=== PATIENT | male | born 1975 | race Caucasian/White ===

== ENCOUNTER → 2016-06-14 | Outpatient (CLI) | payer MEDICARE, OTHER ==
[~2016-06-14] VITALS: Ht 185.4 cm; Wt 163.3 kg
== END ==
LOC: OPSV 08:03
DX: H15.001 Unspecified scleritis, right eye (principal); K21.9 Gastro-esophageal reflux disease without esophagitis; M10.9 Gout, unspecified; I77.6 Arteritis, unspecified; H15.011 Anterior scleritis, right eye; S46.119A Strain of muscle, fascia and tendon of long head of biceps, unspecified arm, initial encounter; H26.9 Unspecified cataract; N18.3 Chronic kidney disease, stage 3 (moderate); R13.10 Dysphagia, unspecified; M31.30 Wegener's granulomatosis without renal involvement; R00.0 Tachycardia, unspecified; R80.9 Proteinuria, unspecified; M85.80 Other specified disorders of bone density and structure, unspecified site; R11.0 Nausea; B19.20 Unspecified viral hepatitis C without hepatic coma; Z79.899 Other long term (current) drug therapy; R53.83 Other fatigue; R60.9 Edema, unspecified; R79.89 Other specified abnormal findings of blood chemistry; I26.99 Other pulmonary embolism without acute cor pulmonale
CPT/HCPCS: 96365; 96366; 96375; J2930; J7030; J9310; Q0163

== ENCOUNTER → 2016-06-28 | Outpatient (CLI) | payer MEDICARE, OTHER ==
[~2016-06-28] VITALS: Ht 185.4 cm; Wt 162.4 kg
== END ==
LOC: OPSV 07:44
DX: M31.30 Wegener's granulomatosis without renal involvement (principal)
CPT/HCPCS: 96365; 96366; 96375; J2930; J7030; J9310; Q0163

== ENCOUNTER 2020-05-26 10:24 | Emergency (ER) | payer MEDICARE, OTHER ==
[~2020-05-26 10:24] MED LIST: ALLOPURINOL100 MG PO; ALLOPURINOL300 MG PO; AMLODIPINE BESY10 MG PO; ELIQUIS5 MG PO; METOPROLOL TAR100 MG PO; OMEPRAZOLE40 MG PO
[2020-05-26 10:59] LABS: HEMOGLOBIN 18.6 gm/dl (14.0-17.5); RED BLOOD COUNT 5.78 M/UL (4.20-5.50); WHITE BLOOD COUNT 9.3 K/UL (4.5-11.0)
[2020-05-26 11:28] LABS: BUN/CREATININE RATIO 14 (0-10)
== END 2020-05-26 14:53 | disposition home or self-care (01) ==
LOC: ER1 10:24
PROVIDERS: Emergency Medicine
DX: U07.1 COVID-19 (principal); I12.9 Hypertensive chronic kidney disease with stage 1 through stage 4 chronic kidney disease, or unspecified chronic kidney disease; N18.9 Chronic kidney disease, unspecified
CPT/HCPCS: 71045; 80053; 82550; 82553; 83874; 84484; 85025; 86140; 99283; M0239

== ENCOUNTER → 2020-06-14 | Outpatient (CLI) | payer MEDICARE, OTHER | LOC: KOH-I 12:07 | DX: B94.8 Sequelae of other specified infectious and parasitic diseases (principal); R05 Cough | CPT/HCPCS: 71046 ==

== ENCOUNTER → 2020-07-22 | Outpatient (CLI) | payer MEDICARE, OTHER | LOC: OPSV 06:59 | DX: M06.9 Rheumatoid arthritis, unspecified (principal) | CPT/HCPCS: 96374; 96413; 96415; J2930; J7030; J9312 ==

== ENCOUNTER → 2020-07-26 | Outpatient (CLI) | payer MEDICARE, OTHER | LOC: HEART 5 13:41 | DX: R94.31 Abnormal electrocardiogram [ECG] [EKG] (principal); B94.8 Sequelae of other specified infectious and parasitic diseases; R06.02 Shortness of breath ==

== ENCOUNTER → 2020-09-19 | Outpatient (CLI) | payer MEDICARE, OTHER | LOC: NM 08-15 13:00 | DX: I10 Essential (primary) hypertension (principal); R94.31 Abnormal electrocardiogram [ECG] [EKG]; R07.9 Chest pain, unspecified; R53.83 Other fatigue; E66.01 Morbid (severe) obesity due to excess calories; R06.02 Shortness of breath; B94.8 Sequelae of other specified infectious and parasitic diseases | CPT/HCPCS: 78452; 93350; A9502; J2785 ==

== ENCOUNTER → 2020-09-20 | Outpatient (CLI) | payer MEDICARE, OTHER | LOC: RAD 11:35 | DX: M25.561 Pain in right knee (principal) | CPT/HCPCS: 73562 ==

== ENCOUNTER → 2020-10-18 | Outpatient (CLI) | payer MEDICARE, OTHER | LOC: HEART 5 08:54 | DX: I48.91 Unspecified atrial fibrillation (principal); I47.2 Ventricular tachycardia; G47.33 Obstructive sleep apnea (adult) (pediatric); I51.7 Cardiomegaly | CPT/HCPCS: 93306 ==

== ENCOUNTER → 2021-05-16 | Outpatient (CLI) | payer MEDICARE, OTHER ==
[2021-05-16 09:24] LABS: HEMOGLOBIN 17.9 gm/dl (14.0-17.5); RED BLOOD COUNT 5.82 M/UL (4.20-5.50); WHITE BLOOD COUNT 10.9 K/UL (4.5-11.0)
== END ==
LOC: OPSV 08:38
PROVIDERS: Internal Medicine
DX: M31.30 Wegener's granulomatosis without renal involvement (principal); I10 Essential (primary) hypertension; K21.9 Gastro-esophageal reflux disease without esophagitis; M10.9 Gout, unspecified
CPT/HCPCS: 85025; 96375; 96413; 96415; J2930; J7030; J9312

== ENCOUNTER → 2021-10-23 | Outpatient (CLI) | payer MEDICARE, OTHER ==
[2021-10-23 13:06] LABS: HEMOGLOBIN 16.7 gm/dl (14.0-17.5); RED BLOOD COUNT 5.07 M/UL (4.20-5.50); WHITE BLOOD COUNT 10.8 K/UL (4.5-11.0)
== END ==
LOC: LAB 12:32
PROVIDERS: Physician Assistant
DX: N18.30 Chronic kidney disease, stage 3 unspecified (principal)
CPT/HCPCS: 36415; 80069; 82570; 83970; 84156; 85027